=== PATIENT | male | born 1940 | race Caucasian/White ===

== ENCOUNTER 2018-04-27 11:54 | Emergency (ER) | payer OTHER ==
[~2018-04-27] VITALS: Ht 172.7 cm; Wt 74.0 kg
[~2018-04-27 11:54] MED LIST: CARVEDILOL PO; DIGOXIN PO; ERYT1OIN5 RIGHTEYE; LISINOPRIL PO; NICO-485 TD; OFLO5DRO4 RIGHTEYE; PEG15DRO4 RIGHTEYE; TAMS-11 PO
[2018-04-27] MEDS ORDERED: LIDOCAINE 2%,20 ML JEL.PF.APP MM ONE ×2 (12:54→13:00)
[2018-04-27 17:33] VITALS: BP 139/84
== END 2018-04-27 17:39 | disposition home or self-care (01) ==
LOC: ED 15:52
DX: N40.1 Benign prostatic hyperplasia with lower urinary tract symptoms (principal); R33.8 Other retention of urine; I10 Essential (primary) hypertension
CPT/HCPCS: 51702; 99284

== ENCOUNTER 2018-05-02 22:41 | Emergency (ER) | payer OTHER ==
[~2018-05-02] VITALS: Ht 172.7 cm; Wt 65.0 kg
[2018-05-03 00:46] VITALS: BP 134/66
== END 2018-05-03 00:50 | disposition home or self-care (01) ==
LOC: ED 23:04
DX: N40.1 Benign prostatic hyperplasia with lower urinary tract symptoms (principal); R33.8 Other retention of urine; I10 Essential (primary) hypertension
CPT/HCPCS: 51702; 99284

== ENCOUNTER 2018-05-03 23:20 | Emergency (ER) | payer OTHER ==
[~2018-05-03] VITALS: Ht 170.2 cm; Wt 110.0 kg
[2018-05-03 23:20] VITALS: BP 128/59
== END 2018-05-04 01:40 | disposition home or self-care (01) ==
LOC: ED 23:28
DX: Z46.6 Encounter for fitting and adjustment of urinary device (principal); I10 Essential (primary) hypertension
CPT/HCPCS: 51702; 99284

== ENCOUNTER 2018-05-09 10:39 | Inpatient (IN) | payer OTHER ==
[~2018-05-09] VITALS: Ht 170.2 cm; Wt 54.6 kg
[2018-05-09 11:48] LABS: BASOPHILS % (AUTO) 0 % (0-1); EOSINOPHILS # (AUTO) 0.03 x10^3/uL (0-0.4); EOSINOPHILS % (AUTO) 0 % (1-7); LYMPHOCYTES # (AUTO) 0.41 x10^3/uL (1-3.4); LYMPHOCYTES % (AUTO) 6 % (22-44); MD NO; MEAN CORPUSCULAR HEMOGLOBIN 29.7 pg (27.5-34.5); MEAN CORPUSCULAR HGB CONC 33.6 g/dL (33.2-36.2); MEAN CORPUSCULAR VOLUME 88.6 fL (81-97); MEAN PLATELET VOLUME 7.4 fL (7.4-10.4); MONOCYTES # (AUTO) 0.25 x10^3/uL (0.2-0.8); MONOCYTES % (AUTO) 4 % (2-9); NEUTROPHILS # (AUTO) 6.29 x10^3/uL (1.8-6.8); NEUTROPHILS % (AUTO) 90 % (42-75); PLATELET COUNT 215 x10^3/uL (130-400); RED BLOOD COUNT 3.26 x10^6/uL (4.38-5.82); RED CELL DISTRIBUTION WIDTH 13.7 % (9.4-14.8)
[2018-05-09 11:54] LABS: INTERNATIONAL NORMALIZED RATIO 1.06 (0.93-1.1); PROTHROMBIN TIME 10.9 Seconds (9.6-11.5)
[2018-05-09 11:55] LABS: CULTURE INDICATED? YES; MICROSCOPIC INDICATED
[2018-05-09 11:57] LABS: ALANINE AMINOTRANSFERASE 11 U/L (12-78); ALBUMIN 2.8 g/dL (3.4-5.0); ANION GAP 8 mmol/L (5-15); CALCIUM 8.3 mg/dL (8.5-10.1); CHLORIDE 111 mmol/L (98-107)
[2018-05-09 12:00] LABS: ALKALINE PHOSPHATASE 137 U/L (45-117); BILIRUBIN,TOTAL 0.5 mg/dL (0.2-1.0); CREATININE 0.77 mg/dL (0.7-1.3)
[2018-05-09] MEDS ORDERED: CEFTRIAXONE 1,000 MG in SODIUM CHLORIDE 0.9% 50 ML IV SCH (15:30)
[2018-05-09 15:57] VITALS: BP 161/71
[2018-05-09] MEDS ORDERED: CEFTRIAXONE PMX 1GM/50ML 50 ML IV SCH (16:00)
[2018-05-09] MEDS ORDERED: ARTIFICIAL TEARS 15 DROP/ML BOTTLE RIGHTEYE SCH (16:00)
[2018-05-09] MEDS ORDERED: NICOTINE 7 MG/24 HR PATCH.TD24 TD SCH (16:00)
[2018-05-09] MEDS: ENOXAPARIN 40 MG/0.4 ML SQ SCH (16:29)
[2018-05-09] MEDS: NICOTINE 7 MG/24 HR PATCH.TD24 TD SCH (16:29)
[2018-05-09] MEDS: SODIUM CHLORIDE 0.9% 1,000 ML IV SCH (16:29)
[2018-05-09] MEDS: OFLOXACIN OPHTH 0.3%, 5ML RIGHTEYE SCH ×2 (18:09→20:38)
[2018-05-09 18:52] VITALS: BP 134/65
[2018-05-10 01:12] VITALS: BP 154/76
[2018-05-10] MEDS: SODIUM CHLORIDE 0.9% 1,000 ML IV SCH ×2 (03:30→13:11)
[2018-05-10] MEDS: OFLOXACIN OPHTH 0.3%, 5ML RIGHTEYE SCH ×4 (05:31→21:39)
[2018-05-10 05:54] LABS: BASOPHILS # (AUTO) 0.03 x10^3/uL (0-0.1); BASOPHILS % (AUTO) 1 % (0-1); EOSINOPHILS # (AUTO) 0.09 x10^3/uL (0-0.4); EOSINOPHILS % (AUTO) 2 % (1-7); LYMPHOCYTES # (AUTO) 0.54 x10^3/uL (1-3.4); LYMPHOCYTES % (AUTO) 10 % (22-44); MD NO; MEAN CORPUSCULAR HEMOGLOBIN 30.3 pg (27.5-34.5); MEAN CORPUSCULAR HGB CONC 34.3 g/dL (33.2-36.2); MEAN CORPUSCULAR VOLUME 88.4 fL (81-97); MEAN PLATELET VOLUME 7.7 fL (7.4-10.4); MONOCYTES # (AUTO) 0.32 x10^3/uL (0.2-0.8); MONOCYTES % (AUTO) 6 % (2-9); NEUTROPHILS # (AUTO) 4.69 x10^3/uL (1.8-6.8); NEUTROPHILS % (AUTO) 83 % (42-75); PLATELET COUNT 195 x10^3/uL (130-400)
[2018-05-10 06:06] LABS: ALBUMIN 2.4 g/dL (3.4-5.0); ANION GAP 10 mmol/L (5-15); CALCIUM 8.1 mg/dL (8.5-10.1); CHLORIDE 109 mmol/L (98-107)
[2018-05-10 06:09] LABS: ALANINE AMINOTRANSFERASE 9 U/L (12-78); ALKALINE PHOSPHATASE 113 U/L (45-117); BILIRUBIN,TOTAL 0.5 mg/dL (0.2-1.0); CREATININE 0.68 mg/dL (0.7-1.3); TOTAL PROTEIN 5.6 g/dL (6.4-8.2)
[2018-05-10 08:21] VITALS: BP 157/69
[2018-05-10] MEDS: TAMSULOSIN 0.4 MG CAP.ER.24H PO SCH (09:00)
[2018-05-10 13:39] VITALS: BP 134/65
[2018-05-10 13:57] LABS: THYROID STIMULATING HORMONE 0.905 mIU/L (0.358-3.740)
[2018-05-10] MEDS: LINEZOLID PMX 600MG/300ML 300 ML IV SCH (15:18)
[2018-05-10] MEDS: ENOXAPARIN 40 MG/0.4 ML SQ SCH (17:40)
[2018-05-10] MEDS: NICOTINE 7 MG/24 HR PATCH.TD24 TD SCH (17:40)
[2018-05-10 20:51] VITALS: BP 151/73
[2018-05-11 00:50] VITALS: BP 136/76
[2018-05-11] MEDS: SODIUM CHLORIDE 0.9% 1,000 ML IV SCH ×3 (01:05→20:26)
[2018-05-11] MEDS: LINEZOLID PMX 600MG/300ML 300 ML IV SCH ×2 (03:20→16:11)
[2018-05-11] MEDS: OFLOXACIN OPHTH 0.3%, 5ML RIGHTEYE SCH ×4 (06:28→20:27)
[2018-05-11 07:24] VITALS: BP 157/69
[2018-05-11] MEDS: TAMSULOSIN 0.4 MG CAP.ER.24H PO SCH (09:00)
[2018-05-11 12:10] VITALS: BP 150/75
[2018-05-11] MEDS: ENOXAPARIN 40 MG/0.4 ML SQ SCH (16:12)
[2018-05-11] MEDS: NICOTINE 7 MG/24 HR PATCH.TD24 TD SCH (16:12)
[2018-05-11 21:55] VITALS: BP 136/68
[2018-05-12] MEDS: LINEZOLID PMX 600MG/300ML 300 ML IV SCH (02:55)
[2018-05-12 02:58] VITALS: BP 138/57
[2018-05-12 05:28] LABS: BASOPHILS # (AUTO) 0.02 x10^3/uL (0-0.1); BASOPHILS % (AUTO) 1 % (0-1); EOSINOPHILS # (AUTO) 0.17 x10^3/uL (0-0.4); EOSINOPHILS % (AUTO) 4 % (1-7); LYMPHOCYTES # (AUTO) 0.59 x10^3/uL (1-3.4); LYMPHOCYTES % (AUTO) 14 % (22-44); MD NO; MEAN CORPUSCULAR HGB CONC 35.2 g/dL (33.2-36.2); MEAN CORPUSCULAR VOLUME 88.2 fL (81-97); MEAN PLATELET VOLUME 7.6 fL (7.4-10.4); MONOCYTES % (AUTO) 9 % (2-9); NEUTROPHILS # (AUTO) 3.08 x10^3/uL (1.8-6.8); NEUTROPHILS % (AUTO) 72 % (42-75); PLATELET COUNT 193 x10^3/uL (130-400); RED BLOOD COUNT 3.09 x10^6/uL (4.38-5.82); RED CELL DISTRIBUTION WIDTH 13.5 % (9.4-14.8)
[2018-05-12 05:40] LABS: CHLORIDE 111 mmol/L (98-107)
[2018-05-12 05:50] LABS: ANION GAP 9 mmol/L (5-15); CALCIUM 8.1 mg/dL (8.5-10.1); CREATININE 0.61 mg/dL (0.7-1.3)
[2018-05-12] MEDS: OFLOXACIN OPHTH 0.3%, 5ML RIGHTEYE SCH ×4 (06:20→19:28)
[2018-05-12] MEDS: TAMSULOSIN 0.4 MG CAP.ER.24H PO SCH (07:28)
[2018-05-12] MEDS ORDERED: AMPICILLIN 1 GM in SODIUM CHLORIDE 0.9% 100 ML IV SCH (10:00)
[2018-05-12] MEDS ORDERED: BENZONATATE 100 MG CAPSULE PO PRN (10:00)
[2018-05-12] MEDS: SODIUM CHLORIDE 0.9% 1,000 ML IV SCH ×2 (10:23→19:28)
[2018-05-12 13:45] VITALS: BP 158/83
[2018-05-12] MEDS: ENOXAPARIN 40 MG/0.4 ML SQ SCH (16:02)
[2018-05-12] MEDS: NICOTINE 7 MG/24 HR PATCH.TD24 TD SCH (17:21)
[2018-05-12 19:34] VITALS: BP 137/65
[2018-05-13 01:11] VITALS: BP 130/62
[2018-05-13] MEDS: SODIUM CHLORIDE 0.9% 1,000 ML IV SCH (05:15)
[2018-05-13] MEDS: OFLOXACIN OPHTH 0.3%, 5ML RIGHTEYE SCH ×4 (05:15→22:03)
[2018-05-13 07:54] VITALS: BP 170/64
[2018-05-13] MEDS: TAMSULOSIN 0.4 MG CAP.ER.24H PO SCH (09:40)
[2018-05-13 14:00] VITALS: BP 113/61
[2018-05-13] MEDS: ENOXAPARIN 40 MG/0.4 ML SQ SCH (15:55)
[2018-05-13] MEDS: NICOTINE 7 MG/24 HR PATCH.TD24 TD SCH (15:59)
[2018-05-13 18:55] VITALS: BP 138/67
[2018-05-14 02:07] VITALS: BP 122/63
[2018-05-14] MEDS: OFLOXACIN OPHTH 0.3%, 5ML RIGHTEYE SCH ×4 (05:20→21:19)
[2018-05-14 07:45] VITALS: BP 163/70
[2018-05-14] MEDS: DOXYCYCLINE 100MG TABLET PO SCH ×2 (09:00→21:26)
[2018-05-14] MEDS ORDERED: CEFTRIAXONE PMX 2GM/50ML 50 ML IV SCH (09:00)
[2018-05-14] MEDS: TAMSULOSIN 0.4 MG CAP.ER.24H PO SCH (09:02)
[2018-05-14] MEDS ORDERED: PHARMACOKINETIC MONITORING MC PRN ×2 (09:30)
[2018-05-14] MEDS ORDERED: VANCOMYCIN PER PHARMACY MC PRN (09:30)
[2018-05-14] MEDS: CEFTAZIDIME 1,000 MG in SODIUM CHLORIDE 0.9% 50 ML IV SCH ×2 (10:20→18:07)
[2018-05-14] MEDS: VANCOMYCIN 1,100 MG in SODIUM CHLORIDE 0.9% 250 ML IV SCH (11:09)
[2018-05-14 14:00] VITALS: BP 124/71
[2018-05-14] MEDS: NICOTINE 7 MG/24 HR PATCH.TD24 TD SCH (16:00)
[2018-05-14] MEDS: ENOXAPARIN 40 MG/0.4 ML SQ SCH (18:07)
[2018-05-14 19:35] VITALS: BP 150/69
[2018-05-15 01:49] VITALS: BP 162/63
[2018-05-15] MEDS: CEFTAZIDIME 1,000 MG in SODIUM CHLORIDE 0.9% 50 ML IV SCH ×3 (02:02→18:32)
[2018-05-15 05:25] LABS: CREATININE 0.65 mg/dL (0.7-1.3)
[2018-05-15] MEDS: OFLOXACIN OPHTH 0.3%, 5ML RIGHTEYE SCH ×4 (06:39→20:16)
[2018-05-15 07:25] VITALS: BP 179/89
[2018-05-15] MEDS: DOXYCYCLINE 100MG TABLET PO SCH ×2 (09:13→20:16)
[2018-05-15] MEDS: TAMSULOSIN 0.4 MG CAP.ER.24H PO SCH (09:13)
[2018-05-15 09:35] VITALS: BP 137/58
[2018-05-15] MEDS: VANCOMYCIN 1,100 MG in SODIUM CHLORIDE 0.9% 250 ML IV SCH (11:42)
[2018-05-15 13:26] VITALS: BP 147/64
[2018-05-15] MEDS ORDERED: DOXY100T PO (14:31)
[2018-05-15] MEDS ORDERED: VANC1VIA3 IV (14:31)
[2018-05-15] MEDS ORDERED: CEFT1PIG IV (14:31)
[2018-05-15] MEDS: NICOTINE 7 MG/24 HR PATCH.TD24 TD SCH (16:00)
[2018-05-15 19:34] VITALS: BP 122/74
[2018-05-15] MEDS: ENOXAPARIN 40 MG/0.4 ML SQ SCH ×2 (20:16→20:21)
[2018-05-16 00:30] VITALS: BP 156/89
[2018-05-16] MEDS: CEFTAZIDIME 1,000 MG in SODIUM CHLORIDE 0.9% 50 ML IV SCH ×2 (01:33→10:54)
[2018-05-16] MEDS: OFLOXACIN OPHTH 0.3%, 5ML RIGHTEYE SCH ×3 (05:54→16:00)
[2018-05-16 07:55] VITALS: BP 177/75
[2018-05-16] MEDS ORDERED: VISIPAQUE 270 MG/ML, 50ML BOTTLE ONE (10:21)
[2018-05-16] MEDS: DOXYCYCLINE 100MG TABLET PO SCH (10:54)
[2018-05-16] MEDS: TAMSULOSIN 0.4 MG CAP.ER.24H PO SCH (10:54)
[2018-05-16] MEDS: VANCOMYCIN 1,100 MG in SODIUM CHLORIDE 0.9% 250 ML IV SCH (12:12)
[2018-05-16 13:43] VITALS: BP 135/69
== END 2018-05-16 16:44 | DRG 698 ==
LOC: ED 10:52 → EDIP 12:44 → 3NE 13:42
PROVIDERS: ADMIT Internal Medicine; ATTEND Internal Medicine
PROC: 0T9B70Z Drainage of Bladder with Drainage Device, Via Natural or Artificial Opening (ICD-10-PCS; 2018-05-09)
PROC: 02HV33Z Insertion of Infusion Device into Superior Vena Cava, Percutaneous Approach (ICD-10-PCS; principal; 2018-05-16)
PROC: B5181ZA Fluoroscopy of Superior Vena Cava using Low Osmolar Contrast, Guidance (ICD-10-PCS; 2018-05-16)
PROC: B548ZZA Ultrasonography of Superior Vena Cava, Guidance (ICD-10-PCS; 2018-05-16)
DX: T83.511A Infection and inflammatory reaction due to indwelling urethral catheter, initial encounter (principal); G92 Toxic encephalopathy; J18.8 Other pneumonia, unspecified organism; N39.0 Urinary tract infection, site not specified; I10 Essential (primary) hypertension; Z51.5 Encounter for palliative care; Z66 Do not resuscitate; R62.7 Adult failure to thrive; R13.10 Dysphagia, unspecified; I35.1 Nonrheumatic aortic (valve) insufficiency; F41.9 Anxiety disorder, unspecified; F17.200 Nicotine dependence, unspecified, uncomplicated; F03.90 Unspecified dementia, unspecified severity, without behavioral disturbance, psychotic disturbance, mood disturbance, and anxiety; Z82.49 Family history of ischemic heart disease and other diseases of the circulatory system; Z80.0 Family history of malignant neoplasm of digestive organs; Z86.73 Personal history of transient ischemic attack (TIA), and cerebral infarction without residual deficits; Z79.899 Other long term (current) drug therapy; Z79.1 Long term (current) use of non-steroidal anti-inflammatories (NSAID); Z79.2 Long term (current) use of antibiotics; Z91.81 History of falling; T42.4X5A Adverse effect of benzodiazepines, initial encounter
CPT/HCPCS: 36415; 36569; 70450; 71045; 76937; 77001; 80048; 80053; 81001; 82140; 82565; 82607; 83605; 83735; 84100; 84145; 84443; 84520; 85025; 85610; 87040; 87077; 87086; 87186; 93005; 93306; 99285; G0378; J0290; J0696; J0713; J1650; J2020; J3370; Q9966; C1751; J7030; J7050

== ENCOUNTER 2018-05-28 16:40 | Inpatient (IN) | payer OTHER ==
[~2018-05-28] VITALS: Ht 170.2 cm; Wt 57.3 kg
[~2018-05-28 16:40] MED LIST changes: +CEFT1PIG IV; +DOXY100T PO; +VANC1VIA3 IV
[2018-05-28 17:44] LABS: BASOPHILS # (AUTO) 0.03 x10^3/uL (0-0.1); BASOPHILS % (AUTO) 1 % (0-1); EOSINOPHILS # (AUTO) 0.19 x10^3/uL (0-0.4); EOSINOPHILS % (AUTO) 4 % (1-7); LYMPHOCYTES # (AUTO) 0.81 x10^3/uL (1-3.4); LYMPHOCYTES % (AUTO) 17 % (22-44); MD NO; MEAN CORPUSCULAR HEMOGLOBIN 28.9 pg (27.5-34.5); MEAN CORPUSCULAR HGB CONC 33.5 g/dL (33.2-36.2); MEAN CORPUSCULAR VOLUME 86.2 fL (81-97); MEAN PLATELET VOLUME 7.7 fL (7.4-10.4); MONOCYTES # (AUTO) 0.37 x10^3/uL (0.2-0.8); MONOCYTES % (AUTO) 8 % (2-9); NEUTROPHILS # (AUTO) 3.34 x10^3/uL (1.8-6.8); NEUTROPHILS % (AUTO) 71 % (42-75); PLATELET COUNT 180 x10^3/uL (130-400); RED BLOOD COUNT 3.31 x10^6/uL (4.38-5.82); RED CELL DISTRIBUTION WIDTH 14.3 % (9.4-14.8)
[2018-05-28 17:47] LABS: INTERNATIONAL NORMALIZED RATIO 1.06 (0.93-1.1); PROTHROMBIN TIME 10.9 Seconds (9.6-11.5)
[2018-05-28 17:48] LABS: ALBUMIN 2.9 g/dL (3.4-5.0); ANION GAP 7 mmol/L (5-15); CALCIUM 8.3 mg/dL (8.5-10.1); CHLORIDE 107 mmol/L (98-107); CREATININE 0.94 mg/dL (0.7-1.3)
[2018-05-28] MEDS ORDERED: LIDOCAINE 2%,20 ML JEL.PF.APP MM ONE ×2 (17:59→18:00)
[2018-05-28] MEDS ORDERED: SODIUM CHLORIDE FLUSH 10ML SYR IVF PRN (20:00)
[2018-05-28] MEDS ORDERED: BISACODYL 10 MG SUPP PR PRN (20:30)
[2018-05-28] MEDS ORDERED: ACETAMINOPHEN 325 MG TABLET PO PRN (20:30)
[2018-05-28] MEDS ORDERED: ONDANSETRON ODT 4 MG PO PRN (20:30)
[2018-05-28] MEDS ORDERED: POLYETHYLENE GLYCOL 17 GM PACKET PO PRN (20:30)
[2018-05-28] MEDS: SODIUM CHLORIDE FLUSH 10ML SYR IVF SCH (21:00)
[2018-05-28 22:00] VITALS: BP 165/71
[2018-05-28 23:11] LABS: MICROSCOPIC INDICATED
[2018-05-28 23:22] LABS: CULTURE INDICATED? NO
[2018-05-29] VITALS (7 sets, daily range): BP systolic 110–181; BP diastolic 51–90
[2018-05-29 05:03] LABS: BASOPHILS # (AUTO) 0.05 x10^3/uL (0-0.1); BASOPHILS % (AUTO) 1 % (0-1); EOSINOPHILS # (AUTO) 0.25 x10^3/uL (0-0.4); EOSINOPHILS % (AUTO) 7 % (1-7); LYMPHOCYTES # (AUTO) 0.69 x10^3/uL (1-3.4); LYMPHOCYTES % (AUTO) 19 % (22-44); MD NO; MEAN CORPUSCULAR HEMOGLOBIN 28.5 pg (27.5-34.5); MEAN CORPUSCULAR HGB CONC 33.3 g/dL (33.2-36.2); MEAN CORPUSCULAR VOLUME 85.5 fL (81-97); MEAN PLATELET VOLUME 7.9 fL (7.4-10.4); MONOCYTES # (AUTO) 0.26 x10^3/uL (0.2-0.8); MONOCYTES % (AUTO) 7 % (2-9); NEUTROPHILS # (AUTO) 2.45 x10^3/uL (1.8-6.8); NEUTROPHILS % (AUTO) 67 % (42-75); PLATELET COUNT 179 x10^3/uL (130-400); RED BLOOD COUNT 3.25 x10^6/uL (4.38-5.82); RED CELL DISTRIBUTION WIDTH 14.4 % (9.4-14.8)
[2018-05-29 05:25] LABS: CHLORIDE 110 mmol/L (98-107)
[2018-05-29 05:36] LABS: ALANINE AMINOTRANSFERASE 14 U/L (12-78); ALBUMIN 2.8 g/dL (3.4-5.0); ALKALINE PHOSPHATASE 109 U/L (45-117); ANION GAP 7 mmol/L (5-15); BILIRUBIN,TOTAL 0.4 mg/dL (0.2-1.0); CALCIUM 8.6 mg/dL (8.5-10.1); CREATININE 0.74 mg/dL (0.7-1.3); TOTAL PROTEIN 5.5 g/dL (6.4-8.2)
[2018-05-29] MEDS: SENNA/DOCUSATE TABLET PO SCH (07:53)
[2018-05-29] MEDS: TAMSULOSIN 0.4 MG CAP.ER.24H PO SCH (07:53)
[2018-05-29] MEDS: SODIUM CHLORIDE FLUSH 10ML SYR IVF SCH ×2 (07:54→20:06)
[2018-05-29] MEDS ORDERED: LIDOCAINE-MPF 1%, 5ML ONE (12:42)
[2018-05-29] MEDS ORDERED: FENTANYL PF 100 MCG/2ML ONE (12:46)
[2018-05-29] MEDS ORDERED: MIDAZOLAM 1 MG/ML, 5ML ONE ×2 (12:46)
[2018-05-29] MEDS ORDERED: FLUMAZENIL 0.1 MG/1 ML, 5ML ONE (12:47)
[2018-05-29] MEDS ORDERED: NALOXONE 1 MG/ML, 2ML ONE (12:47)
[2018-05-29] MEDS ORDERED: hydrALAzine 20 MG/ML, 1ML IV PRN (13:00)
[2018-05-29] MEDS: LISINOPRIL 10 MG TABLET PO SCH (13:46)
[2018-05-29] MEDS ORDERED: ACET325T14 PO (15:01)
[2018-05-29] MEDS ORDERED: LISI-167 PO (15:01)
[2018-05-30 02:03] VITALS: BP 148/70
[2018-05-30 07:19] VITALS: BP 173/88
[2018-05-30] MEDS: LISINOPRIL 10 MG TABLET PO SCH (07:47)
[2018-05-30] MEDS: SENNA/DOCUSATE TABLET PO SCH (07:47)
[2018-05-30] MEDS: TAMSULOSIN 0.4 MG CAP.ER.24H PO SCH (07:47)
[2018-05-30] MEDS: SODIUM CHLORIDE FLUSH 10ML SYR IVF SCH (07:47)
== END 2018-05-30 11:37 | disposition home or self-care (01) | DRG 253 ==
LOC: ED 18:37 → EDIP 19:46 → 3NE 21:15
PROVIDERS: ADMIT Internal Medicine; ATTEND Internal Medicine
PROC: 0T9B70Z Drainage of Bladder with Drainage Device, Via Natural or Artificial Opening (ICD-10-PCS; principal; 2018-05-28)
PROC: 06H03DZ Insertion of Intraluminal Device into Inferior Vena Cava, Percutaneous Approach (ICD-10-PCS; 2018-05-29)
DX: I82.412 Acute embolism and thrombosis of left femoral vein (principal); E44.0 Moderate protein-calorie malnutrition; Z68.1 Body mass index [BMI] 19.9 or less, adult; R31.0 Gross hematuria; Z87.891 Personal history of nicotine dependence; N40.1 Benign prostatic hyperplasia with lower urinary tract symptoms; I82.432 Acute embolism and thrombosis of left popliteal vein; F03.90 Unspecified dementia, unspecified severity, without behavioral disturbance, psychotic disturbance, mood disturbance, and anxiety; D64.9 Anemia, unspecified; I10 Essential (primary) hypertension; R33.8 Other retention of urine; H18.9 Unspecified disorder of cornea; Z66 Do not resuscitate; Z82.49 Family history of ischemic heart disease and other diseases of the circulatory system; Z91.81 History of falling; Z87.440 Personal history of urinary (tract) infections
CPT/HCPCS: 36415; 37191; 51702; 80048; 80053; 81001; 82040; 85025; 85610; 85730; 93970; C1880; G0378; J2250; J3010; J0360; J2310

== ENCOUNTER 2018-06-30 17:03 | Emergency (ER) | payer OTHER ==
[~2018-06-30] VITALS: Ht 170.2 cm; Wt 59.0 kg
[~2018-06-30 17:03] MED LIST changes: +ACET325T14 PO; +LISI-167 PO
[2018-06-30 17:09] VITALS: BP 158/72
== END 2018-06-30 19:01 | disposition home or self-care (01) ==
LOC: ED 17:34
DX: S09.8XXA Other specified injuries of head, initial encounter (principal); M54.5 Low back pain; G89.29 Other chronic pain; I10 Essential (primary) hypertension; Z86.718 Personal history of other venous thrombosis and embolism; R51 Headache
CPT/HCPCS: 70450; 72110; 93005; 99284